=== PATIENT | female | born 1965 | race Caucasian/White ===

== ENCOUNTER 2018-04-02 13:40 | Emergency (ER) | payer BC ==
[~2018-04-02] VITALS: Ht 167.6 cm; Wt 79.4 kg
[2018-04-02 14:10] VITALS: BP 165/85
--- NOTE | 2018-04-02 14:11 | PHYS DOC ---
Adult General Chief Complaint Chief Complaint: EYE PROBLEMS HPI HPI Patient is a 52 year old female presents to the ED complaining of right eye pain times one hour ago. States she was brushing her horse and one of the stick bugs got in her right eye. Patient wears glasses but not contacts. Describes the pain as sharp. Rates the pain as 6 out of 10. States she has been itching it because it feels like there is something in there. Denies green discharge, vision changes, fever, injury, nausea/vomiting, dizziness, weakness, headache, neck pain. Review of Systems Review of Systems Constitutional: Denies fever or chills [] Eyes: Complains of right eye FB sensation. Denies change in visual acuity, redness, or eye pain [] HENT: Denies nasal congestion or sore throat [] Respiratory: Denies cough or shortness of breath [] Cardiovascular: No additional information not addressed in HPI [] Musculoskeletal: Denies back pain or joint pain [] Integument: Denies rash or skin lesions [] Neurologic: Denies headache, focal weakness or sensory changes [] All other systems were reviewed and found to be within normal limits, except as documented in this note. Current Medications Current Medications Current Medications Medications (Trade) Dose Ordered Sig/Alex Start Time Stop Time Status Last Admin Dose Admin Fluorescein Sodium (Ful-Rosita) 1 strip 1X ONCE 04/02/18 14:15 04/02/18 14:16 DC 04/02/18 14:21 1 STRIP Proparacaine HCl (Alcaine) 1 drop 1X ONCE 04/02/18 14:15 04/02/18 14:16 DC 04/02/18 14:21 1 DROP Allergies Allergies Allergies Coded Allergies Type Severity Reaction Last Updated Verified No Known Drug Allergies 04/02/18 No Physical Exam Physical Exam Constitutional: Well developed, well nourished, no acute distress, non-toxic appearance. [] HENT: Normocephalic, atraumatic, bilateral external ears normal, oropharynx moist, no oral exudates, nose normal. [] Eyes: PERRLA, EOMI, right eye conjunctival injection, small corneal abrasion at 1 o'clock under the eyelid no discharge. [] Neck: Normal range of motion, no tenderness, supple, no stridor. [] Cardiovascular:Heart rate regular rhythm, no murmur [] Lungs & Thorax: Bilateral breath sounds clear to auscultation [] Skin: Warm, dry, no erythema, no rash. [] Neurologic: Alert and oriented X 3, normal motor function, normal sensory function, no focal deficits noted. [] Psychologic: Affect normal, judgement normal, mood normal. [] Current Patient Data Vital Signs Vital Signs Date Time Temp Pulse Resp B/P (MAP) Pulse Ox O2 Delivery O2 Flow Rate FiO2 04/02/18 14:10 97.9 77 18 165/85 (111) 100 Room Air 97.9 EKG EKG [] Radiology/Procedures Radiology/Procedures [] Course & Med Decision Making Course & Med Decision Making Pertinent Labs and Imaging studies reviewed. (See chart for details) []Tetanus UTD. Visual acuity within normal limits. Patient's pain improved with proparacaine drops used. States she is feeling much better. On examination patient has a corneal abrasion at the 1 o'clock position. Normal IOP. No FB seen on exam. Discussed symptomatic treatment and follow-up with public health nurse if symptoms do not improve. Provided contact information/ education. Discussed reasons to return to the ED. Patient understands and agrees with plan. Dragon Disclaimer Dragon Disclaimer This electronic medical record was generated, in whole or in part, using a voice recognition dictation system. Departure Departure Impression: Primary Impression: Corneal abrasion Disposition: 01 HOME, SELF-CARE Condition: IMPROVED Referrals: BASIA MILLER MD (PCP) TAYLOR BEE MD Patient Instructions: Eye - Corneal Abrasion Scripts Hydrocodone/Apap 5-325 (NORCO 5-325 TABLET) 1 Each Tablet 1 TAB PO BID for 3 Days, #6 TAB Prov: CJ MCDERMOTT 04/02/18 Sulfacetamide Sodium (BLEPH-10) 5 Ml Drops 2 DROP OD QID for 5 Days, #5 ML Prov: CJ MCDERMOTT 04/02/18 CJ MCDERMOTT Apr 02, 2018 14:11
[2018-04-02] MEDS ORDERED: FLUORESCEIN OPHTH TEST STRIP. OD ONE (14:15)
[2018-04-02] MEDS ORDERED: PROPARACAINE 0.5% OPHTH SOLUTION 15ML BOTTLE. OD ONE (14:15)
[2018-04-02] MEDS ORDERED: SULF5DRO OD (14:42)
[2018-04-02] MEDS ORDERED: HYDR-971 PO (14:42)
== END 2018-04-02 14:50 | disposition home or self-care (01) ==
LOC: ER 13:40
DX: S05.01XA Injury of conjunctiva and corneal abrasion without foreign body, right eye, initial encounter (principal); X58.XXXA Exposure to other specified factors, initial encounter; Y93.89 Activity, other specified; Y92.89 Other specified places as the place of occurrence of the external cause; Y99.8 Other external cause status
CPT/HCPCS: 99283

== ENCOUNTER 2021-10-01 11:52 | Emergency (ER) | payer BC ==
[~2021-10-01] VITALS: Ht 167.6 cm; Wt 81.0 kg
[~2021-10-01 11:52] MED LIST: HYDR-3164 PO; SULF5DRO OD
[2021-10-01 11:59] VITALS: BP 155/86
--- NOTE | 2021-10-01 12:08 | PHYS DOC ---
Past Medical History Past Medical History: No Pertinent History Past Surgical History: Smoking Status: Never Smoker Alcohol Use: None Drug Use: None Adult General Chief Complaint Chief Complaint: LOWER EXT PAIN [facility] HPI Patient is a 55 year old female who presents with left ankle pain/swelling. Patient states she was stepped on by a horse 1 week earlier. Since that time, she has had ongoing pain and swelling in the left foot and ankle. Had minor abrasion in the left ankle. No fever. Her last tetanus immunization was less than 5 years ago. No other complaints today. She has been able to weight-bear although this causes discomfort Review of Systems Review of Systems Constitutional: Denies fever or chills Eyes: Denies change in visual acuity HENT: Denies Respiratory: Denies Cardiovascular: No additional information GI: Denies Musculoskeletal: as documented in HPI Integument: abrasion over lower leg Neurologic: Denies headache All other systems were reviewed and found to be within normal limits, except as documented in this note. Allergies Allergies Allergies Coded Allergies Type Severity Reaction Last Updated Verified No Known Drug Allergies 04/02/18 No Physical Exam Physical Exam Constitutional: Well developed, well nourished, no acute distress, non-toxic appearance HENT: Normocephalic, atraumatic, bilateral external ears normal, oropharynx moist Neck: Normal range of motion Lungs & Thorax: normal respiratory effort Skin: minor abrasion over lateral aspect of the left distal leg just proximal to malleolus. No cellulitis is present Back: Normal ROM Extremities: Diffuse edema over the left ankle and foot. 2+ dp pulses present Neurologic: Alert and oriented X 3 Psychologic: Affect normal Current Patient Data Vital Signs Vital Signs Date Time Temp Pulse Resp B/P (MAP) Pulse Ox O2 Delivery O2 Flow Rate FiO2 10/01/21 11:59 98.5 68 18 155/86 (109) 98 Room Air 98.5 EKG EKG [] Radiology/Procedures Radiology/Procedures [] Course & Med Decision Making Course & Med Decision Making Pertinent Labs and Imaging studies reviewed. (See chart for details) ED summary: Patient seen in the emergency department with swelling in the left lower extremity and minor abrasion described above. On examination, she has equal pulses. There is 1+ edema of the affected extremity. There is minor abrasion. Also minor erythema over the medial aspect of the leg. Plain film imaging completed. No acute bony injury. Possibly early infection or cellulitis forming in she is placed on antibiotics. Given prescription for Levaquin. Also given some tramadol for pain. Stable for discharge home. Recommended to keep elevated. She is placed on Aircast splint in the emergency department prior to discharge. Will follow up with her primary care doctor as needed or come back to the ER for any severely worsening symptoms. Tetanus immunization was not indicated today Dragpaul Disclaimer Dragon Disclaimer This electronic medical record was generated, in whole or in part, using a voice recognition dictation system. Departure Departure Impression: Primary Impression: Abrasion, left ankle, initial encounter Disposition: HOME / SELF CARE / HOMELESS Condition: GOOD Referrals: BASIA MILLER MD (PCP) Patient Instructions: Abrasion, [id number] Scripts Tramadol Hcl (TRAMADOL HCL) 50 Mg Tablet 50 MG PO BID PRN for PAIN, #16 TAB 0 Refills Prov: NAVID MORA DO 10/01/21 Levofloxacin (LEVOFLOXACIN) 500 Mg Tablet 1 TAB PO DAILY, #7 TAB Prov: NAVID MORA DO 10/01/21 NAVID MORA DO Oct 01, 2021 12:08
--- NOTE | 2021-10-01 12:39 | RAD ---
EXAM: Left ankle, 3 views. HISTORY: Blunt trauma. Pain. COMPARISON: None. FINDINGS: 3 views of the left ankle are obtained. There is no acute fracture, dislocation or subluxat ion. There are tiny ossicles inferior to the medial and lateral malleoli, likely degenerative or the sequela of remote injury. The ankle mortise is intact. There is no osteochondral lesion. There is a s mall plantar spur. There is soft tissue swelling. IMPRESSION: Soft tissue swelling. No acute osseous finding. Electronically signed by: Jane Hawkins MD (10/01/2021 12:37 PM) [id number]
[2021-10-01] MEDS ORDERED: LEVO500T9 PO (13:02)
[2021-10-01] MEDS ORDERED: TRAM50TA PO (13:02)
== END 2021-10-01 13:17 | disposition home or self-care (01) ==
LOC: ER 11:52
DX: S90.512A Abrasion, left ankle, initial encounter (principal); W55.19XA Other contact with horse, initial encounter; Y93.89 Activity, other specified; Y92.89 Other specified places as the place of occurrence of the external cause; Y99.8 Other external cause status
CPT/HCPCS: 73610; 99283; L4350